=== PATIENT | female | born 1985 | race Caucasian/White ===

== ENCOUNTER 2019-09-09 15:43 | Emergency (ER) | payer MEDICARE ==
[~2019-09-09] VITALS: Ht 157.5 cm; Wt 51.7 kg
[2019-09-09] MEDS ORDERED: MEDROLDOSEPACK PO (18:12)
[2019-09-09] MEDS ORDERED: KEFLEX500 M1 PO (18:12)
[2019-09-09 18:18] VITALS: BP 145/90
== END 2019-09-09 18:18 | disposition home or self-care (01) ==
LOC: M.ERS 15:43
DX: L03.116 Cellulitis of left lower limb (principal); F17.210 Nicotine dependence, cigarettes, uncomplicated; Z86.718 Personal history of other venous thrombosis and embolism

== ENCOUNTER 2019-09-24 16:36 | Emergency (ER) | payer MEDICARE ==
[~2019-09-24] VITALS: Ht 157.5 cm; Wt 49.0 kg
[~2019-09-24 16:36] MED LIST: KEFLEX500 M1 PO; MEDROLDOSEPACK PO
[2019-09-24] MEDS ORDERED: PEPCID40 MG PO (16:55)
[2019-09-24] MEDS ORDERED: VISTARIL50 MG PO (16:56)
[2019-09-24] MEDS ORDERED: LAMICTAL100 MG PO (16:57)
[2019-09-24] MEDS ORDERED: OLANZAPINE5 M1 PO (16:57)
[2019-09-24] MEDS ORDERED: TPN ELECTROLYTE20 M1 IV (16:58)
[2019-09-24] MEDS ORDERED: ROXICODONE15 MG PO (16:58)
[2019-09-24] MEDS ORDERED: IMODIUM A-D2 M1 PO (17:01)
[2019-09-24 17:17] LABS: URINE BILIRUBIN NEGATIVE (Negative); URINE BLOOD NEGATIVE (Negative); URINE CLARITY CLEAR; URINE COLOR YELLOW; URINE GLUCOSE-RANDOM NEGATIVE (Negative); URINE KETONES NEGATIVE (Negative); URINE LEUKOCYTES-REFLEX NEGATIVE (Negative); URINE NITRITE-REFLEX NEGATIVE (Negative); URINE PROTEIN 1+ (Negative); URINE SPECIFIC GRAVITY >= 1.030 (1.005-1.030); URINE UROBILINOGEN 0.2 E.U./dl (0.2-1.0)
[2019-09-24 17:25] LABS: ABSOLUTE BASOPHILS 0.1 thou/uL (0.0-0.2); ABSOLUTE LYMPHOCYTES 3.3 thou/uL (0.8-5.3); ABSOLUTE MONOCYTES 0.6 thou/uL (0.0-1.2); ABSOLUTE NEUTROPHILS 6.3 thou/uL (1.6-8.1); BASOPHILS 1.3 %; EOSINOPHILS 0.3 %; HEMATOCRIT 41.4 % (37.0-47.0); HEMOGLOBIN 14.4 gm/dL (12.0-15.0); LYMPHOCYTES 32.1 %; MCH 31.6 pg (26.0-34.0); MCHC 34.8 g/dL (28.0-37.0); MCV 90.9 fL (80.0-100.0); MONOCYTES 5.3 %; MPV 8.1 fl. (7.2-11.1); NUCLEATED RBCS 0 /100WBC; PLATELET COUNT* 210 thou/uL (150-400); RBC 4.55 mil/uL (4.20-5.00); RDW-CV 14.7 % (10.5-14.5); WBC 10.4 thou/uL (4.0-11.0)
[2019-09-24 17:41] LABS: ALBUMIN 3.9 g/dL (3.4-5.0); CALCIUM 8.4 mg/dL (8.5-10.1); CREATININE 0.8 mg/dL (0.6-1.3); TOTAL BILIRUBIN 0.3 mg/dL (<0.1-1.0); TOTAL PROTEIN 8.3 g/dL (6.4-8.2)
[2019-09-24 17:43] LABS: POTASSIUM 2.9 mmol/L (3.5-5.1)
[2019-09-24] MEDS ORDERED: TYLENOL WITH CO1 TA1 PO (18:58)
[2019-09-24] MEDS ORDERED: ONDANSETRON HCL4 M2 PO (18:58)
[2019-09-24] MEDS ORDERED: BENTYL 20 MG TA20 M1 PO (18:58)
[2019-09-24] MEDS ORDERED: POTASSIUM20 PO (19:38)
[2019-09-24 19:46] VITALS: BP 141/86
--- NOTE | 2019-09-25 15:05 | EKG ---
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 09/25/19 1505 1744 1744 Giuseppe Clement MD, [facility] /EPI
== END 2019-09-24 19:46 | disposition home or self-care (01) ==
LOC: M.ERS 16:36
PROVIDERS: Nurse Practitioner Family
DX: E87.6 Hypokalemia (principal); R19.7 Diarrhea, unspecified; R10.84 Generalized abdominal pain; F17.210 Nicotine dependence, cigarettes, uncomplicated; Z88.1 Allergy status to other antibiotic agents; Z88.8 Allergy status to other drugs, medicaments and biological substances; Z85.43 Personal history of malignant neoplasm of ovary; Z85.41 Personal history of malignant neoplasm of cervix uteri; Z90.710 Acquired absence of both cervix and uterus; Z86.718 Personal history of other venous thrombosis and embolism

== ENCOUNTER 2019-10-10 12:04 | Emergency (ER) | payer MEDICARE ==
[~2019-10-10] VITALS: Ht 157.5 cm; Wt 49.9 kg
[~2019-10-10 12:04] MED LIST changes: +BENTYL 20 MG TA20 M1 PO; +IMODIUM A-D2 M1 PO; +LAMICTAL100 MG PO; +OLANZAPINE5 M1 PO; +ONDANSETRON HCL4 M2 PO; +PEPCID40 MG PO; +POTASSIUM20 PO; +ROXICODONE15 MG PO; +TPN ELECTROLYTE20 M1 IV; +TYLENOL WITH CO1 TA1 PO; +VISTARIL50 MG PO
[2019-10-10] MEDS ORDERED: TRIAMCINOLONE A80 G2 TOP (12:27)
[2019-10-10] MEDS ORDERED: KEFLEX500 M1 PO (12:27)
[2019-10-10] MEDS ORDERED: BACTRIM DS TAB1 EACH PO (12:27)
[2019-10-10] MEDS ORDERED: LIDOCAINE VISC100 ML TOP (12:31)
[2019-10-10 12:38] VITALS: BP 151/94
== END 2019-10-10 12:40 | disposition home or self-care (01) ==
LOC: M.ERS 12:04
DX: L03.113 Cellulitis of right upper limb (principal); Z90.710 Acquired absence of both cervix and uterus; Z86.718 Personal history of other venous thrombosis and embolism; Z85.43 Personal history of malignant neoplasm of ovary; Z88.1 Allergy status to other antibiotic agents; Z88.8 Allergy status to other drugs, medicaments and biological substances